=== PATIENT | female | born 1975 | race Caucasian/White ===

== ENCOUNTER 2017-04-07 07:48 | Emergency (ER) | payer BC ==
--- NOTE | 2017-04-07 08:36 | UC ---
Respiratory Complaint HPI - HPI Summary HPI Summary: cough and congestion a few weeks ago which almost completely resolved and then over past 5 days she has had a nagging cough. Non productive and no fever or chills. No sob. - History of Current Complaint Chief Complaint: UCRespiratory Stated Complaint: COUGH Time Seen by Provider: 04/07/17 08:25 Hx Obtained From: Patient Hx Last Menstrual Period: 03/28/16 ?: No Onset/Duration: Sudden Onset, Lasting Days Timing: Constant Severity Initially: Moderate Severity Currently: Moderate Character: Cough: Nonproductive Aggravating Factors: Deep Breaths, Recumbent Position Alleviating Factors: OTC Meds, Upright Position, Spontaneous Resolution Associated Signs And Symptoms: Positive: URI, Nasal Congestion. Negative: Dyspnea, Fever, Wheezing, Hemoptysis, Dizziness, Calf Pain, Calf Swelling - Allergies/Home Medications Allergies/Adverse Reactions: Allergies Allergy/AdvReac Type Severity Reaction Status Date / Time No Known Allergies Allergy Verified 04/07/17 07:59 Home Medications: Home Medications Cholecalciferol [Vitamin D3 Ultra Potency] 50,000 unit PO WEEKLY 04/07/17 [ History Confirmed 04/07/17] Multiple Vitamins W/ Minerals [Airborne] 3 tab PO DAILY PRN 04/07/17 [History Confirmed 04/07/17] PMH/Surg Hx/FS Hx/Imm Hx Previously Healthy: Yes - No prior lung disease. - Surgical History Surgical History: Yes Surgery Procedure, Year, and Place: Appendectomy, ~1994, [place]; Tonsillectomy, ~1979, [place] - Family History Known Family History: Positive: Other - no related lung disease. - Social History Alcohol Use: Rare Substance Use Type: None Smoking Status (MU): Never Smoked Tobacco - Immunization History Most Recent Influenza Vaccination: Not the Season Review of Systems ENT: Sinus Congestion Respiratory: Cough All Other Systems Reviewed And Are Negative: Yes Physical Exam Triage Information Reviewed: Yes Appearance: Well-Appearing, No Pain Distress, Well-Nourished Vital Signs: Initial Vital Signs Temp 98.9 F 04/07/17 07:57 Pulse 76 04/07/17 07:57 Resp 16 04/07/17 07:57 BP 129/77 04/07/17 07:57 Pulse Ox 100 04/07/17 07:57 Vital Signs Reviewed: Yes Eyes: Positive: Conjunctiva Clear ENT: Positive: Normal ENT inspection, Hearing grossly normal, Pharynx normal, Nasal congestion, TMs normal. Negative: Pharyngeal erythema, Nasal drainage, TM bulging, TM dull, TM red, Tonsillar swelling, Tonsillar exudate, Trismus, Muffled voice, Hoarse voice Neck: Positive: Supple, Nontender, No Lymphadenopathy Respiratory: Positive: Lungs clear, Normal breath sounds, No respiratory distress, No accessory muscle use. Negative: Respiratory distress, Decreased breath sounds, Accessory muscle use, Crackles, Rhonchi, Stridor, Wheezing Cardiovascular: Positive: No Murmur, Pulses Normal, Brisk Capillary Refill Abdomen Description: Positive: Soft. Negative: Distended, Guarding Musculoskeletal: Positive: ROM Intact, No Edema Neurological: Positive: Alert, Muscle Tone Normal. Negative: Fatigued Skin Exam: Normal Skin: Negative: rashes UC Diagnostic Evaluation - Laboratory O2 Sat by Pulse Oximetry: 100 Respiratory Course/Dx - Differential Dx/Diagnosis Differential Diagnosis/HQI/PQRI: Aspiration, Asthma, Bronchitis, CHF, Influenza , Laryngitis, Lower Resp Infection, Pneumothorax Provider Diagnoses: uri viral Discharge - Discharge Plan Condition: Good Disposition: HOME Prescriptions: Benzonatate CAP* [Tessalon 100 MG CAP*] 100 mg PO TID #21 cap Patient Education Materials: Decongestant/Expectorant (By mouth) Referrals: Mary Calvert MD [Primary Care Provider] - Additional Instructions: jeovanny Schmidt with [facility].
== END 2017-04-07 08:47 | disposition home or self-care (01) ==
LOC: UCCORT 07:48
DX: J06.9 Acute upper respiratory infection, unspecified (principal)
CPT/HCPCS: 99202; G0463